=== PATIENT | male | born 1990 | race Caucasian/White ===

== ENCOUNTER 2017-01-07 13:15 | Emergency (ER) | payer MEDICARE, OTHER | END 2017-01-07 15:18 | disposition home or self-care (01) | LOC: ER 13:15 | DX: K08.89 Other specified disorders of teeth and supporting structures (principal); G40.909 Epilepsy, unspecified, not intractable, without status epilepticus; Z88.1 Allergy status to other antibiotic agents; Z88.2 Allergy status to sulfonamides | CPT/HCPCS: 99282; 99283 ==